=== PATIENT | female | born 1995 | race Caucasian/White ===

== ENCOUNTER 2025-05-26 11:05 | Outpatient (AMB) | payer MEDICAID, SELFPAY ==
[2025-05-26 11:20] VITALS: BP 119/83; PULSE 108; RESP 16; TEMP 36.2; O2SAT 98; BMI 28.0
--- NOTE | 2025-05-26 11:20 | GYNCLNT_ITS ---
Vital Signs 05/26/25 11:20 Height 1.7 m Height Method Stated Weight 81.25 kg Weight Measurement Method Standing Scale BMI 28.0 BP 119/83 Blood Pressure Source Automatic Cuff Blood Pressure Location Left Upper Arm Position Sitting Respiration 16 Pulse 108 H Pulse Source Monitor Temp 97.2 F Temp Source Oral Pulse Oximetry (%) 98 Oxygen Delivery Method Room Air Allergies/Home Meds Allergies & Medications Allergies latex Allergy (Severe, Verified 05/26/25 11:24) Rash doxycycline Allergy (Mild, Verified 05/26/25 11:24) Vomiting Medication Reconciliation acetaminophen 500 mg tablet 500 mg PO Q6H PRN Pain 04/30/23 [History Confirmed 05/26/25] omeprazole 10 mg capsule,delayed release 10 mg PO QDAY 06/03/24 [History Confirmed 05/26/25] vitamin-ferrous sulfate 27 mg iron-folic acid 0.8 mg tablet 1 tab PO QDAY 06/03/24 [History Confirmed 05/26/25] ferrous sulfate 325 mg (65 mg iron) tablet,delayed release 325 mg PO QDAY 90 days #90 tabs 06/05/24 [Rx Confirmed 05/26/25] Intake Visit Data Collection New Patient or Established: Established Patient (seen at [facility] within 3 years) Reason for Visit:: OBC Seen by Clinical Staff ONLY (RN/MA): No Kitchen Assistant Required: No Do You Feel Safe at Home: Yes Authorities Contacted: N/A PCP or OBGYN visit in last 3 months: Yes Date of Last PCP or OBGYN visit: 06/05/25 Hx Now: No Are you currently on any form of Control: No Last menstrual period: 04/30/25 Pain Present Currently: No Pain Scale Used: Arteaga-Sommer/Numerical Pain scale:: 0 Smoking Status Smoking Status: Former smoker 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 Menstrual regularity: regular Flow: normal Monthly: Yes Age at menarche: 7 Menopausal: No 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 1. Little interest or pleasure in doing things: not at all 2. Feeling down, depressed, or hopeless: not at all Total score: 0 PHQ-9 3. Trouble falling or staying asleep, or sleeping too much: Not at all 4. Feeling tired or having little energy: Not at all 5. Poor appetite or overeating: Not at all 6. Feeling bad about yourself - or that you are a failure or have let yourself or your family down: Not at all 7. Trouble concentrating on things, such as reading the newspaper or watching television: Not at all 8. Moving or speaking so slowly that other people could have noticed? - Or the opposite - being so fidgety or restless that you have been moving around a lot more than usual: not at all 9. Thoughts that you would be better off or of hurting yourself in some way: Not at all Total score: 0 If you checked off any problems, how difficult have these problems made it for you to do your work, take care of things at home, or get along with other people?: not difficult at all Source: Developed by Drs. Rahul Colby, Ashwini Stewart, Bharat Maurice and colleagues, with an educational efra from [employer]. Depression screen completed yes Social History Living Situation History Marital Status: Lives With: Family Housing: House Tobacco History Smoking Status: Former smoker Second Hand Smoke Exposure: Yes Alcohol History Alcohol Intake: Never Domestic Abuse History Do You Feel Safe at Home: Yes History of Present Illness HPI Narrative Gisele Ventura, a 29-year-old female, presents for a surgical sterilization consultation. She is approximately one year from her last section, which occurred on June 03, 2024. The patient is interested in pursuing a tubal ligation for permanent contraception. She has no specific complaints or symptoms related to this decision. Gisele is currently taking a vitamin but has been advised to switch to a women's one-a-day multivitamin with higher doses of nutrients. Gisele appears to understand the permanent and irreversible nature of the tubal ligation procedure. She has been informed about the laparoscopic approach, involving three small incisions, and the expected recovery time of 48 to 72 hours. The patient has not expressed any concerns or asked additional questions about the procedure at this time. Surgical History: - section approximately 1 year ago Exam General General Appearance: alert, in no apparent distress and healthy appearing Head Head exam: atraumatic Neck Neck exam: Present normal inspection and trachea midline Chest Chest inspection: Present normal inspection and symmetric chest wall rise External exam: Present normal external exam; Absent tenderness Neuro Neurological exam: Present oriented X3 Psych Psychiatric exam: Present normal affect and normal mood Office Procedures OB Clinic LOC & Office Proc's Nursing/Assessment Patient Status: Established Patient OB Clinic Nursing Assessment: Medication Reconciliation, Update PMH in EMR and Vital Signs OB Clinic Coordination of Care: Education Complex Pt/Fam, Consent,records obtained, informed consent, Lab and Imaging orders, Results/Orders obtained and Staff clarify orders Established Patient Charge Established Patient Point Assignment: 85 Established Patient Point Charge: EP Level 3 (80-115) Assessment & Plan Diagnosis / Problem List (1) Encounter for sterilization: Status: Acute Plan Desire for permanent contraception Assessment: Patient is seeking permanent contraception via tubal ligation. She has completed childbearing with her last delivery via section one year ago. Patient is currently taking vitamins. Plan: - Provide state sterilization consent form for patient to sign - Initiate 30-day mandatory waiting period post-consent - Obtain insurance authorization during waiting period - Schedule laparoscopic bilateral salpingectomy after authorization approval - Recommend switching from vitamin to women's one-a-day multivitamin - Perform pre-operative evaluation and counseling at future appointment - Informed consent discussed: - Procedure involves 3 small laparoscopic incisions - Complete removal of fallopian tubes - Permanent and irreversible - No expected changes to menstrual cycle or hormones - Outpatient procedure under general anesthesia - Estimated 2-hour post-operative stay - 48-72 hour recovery period - Tentative surgery day: - Expected return to work by Saturday or Saturday post-surgery
== END 2025-05-26 11:39 | disposition home or self-care (01) ==
PROVIDERS: Supervising Provider Obstetrics & Gynecology; Visit Provider Obstetrics & Gynecology
DX: Z30.2 Encounter for sterilization (principal); Z87.891 Personal history of nicotine dependence; Z91.040 Latex allergy status; Z88.1 Allergy status to other antibiotic agents
CPT/HCPCS: 99213; G0463

== ENCOUNTER 2025-06-30 08:05 | Outpatient (AMB) | payer MEDICAID, SELFPAY ==
[2025-06-30 08:33] VITALS: BP 122/85; PULSE 85; RESP 16; TEMP 36.2; O2SAT 96; BMI 28.5
--- NOTE | 2025-06-30 08:33 | AMB.GYNCLNOT ---
Vital Signs 06/30/25 08:33 Height 1.7 m Height Method Stated Weight 82.667 kg Weight Measurement Method Standing Scale BMI 28.5 BP 122/85 H Blood Pressure Source Automatic Cuff Blood Pressure Location Left Upper Arm Position Sitting Respiration 16 Pulse 85 Pulse Source Monitor Temp 97.2 F Temp Source Oral Pulse Oximetry (%) 96 Oxygen Delivery Method Room Air Allergies/Home Meds Allergies & Medications Allergies latex Allergy (Severe, Verified 07/22/25 07:05) Rash doxycycline Allergy (Mild, Verified 07/22/25 07:05) Vomiting Medication Reconciliation vitamin-ferrous sulfate 27 mg iron-folic acid 0.8 mg tablet 1 tab PO QDAY 06/03/24 [History Confirmed 07/16/25] Intake Visit Data Collection New Patient or Established: Established Patient (seen at [facility] within 3 years) Reason for Visit:: PRE OP Seen by Clinical Staff ONLY (RN/MA): No 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 Do You Feel Safe at Home: Yes Authorities Contacted: N/A PCP or OBGYN visit in last 3 months: Yes Hx Now: No Are you currently on any form of Control: No Last menstrual period: 06/02/25 Pain Present Currently: No Pain Scale Used: Arteaga-Sommer/Numerical Pain scale:: 0 Smoking Status Smoking Status: Former smoker Immunizations Flu Vaccine in the Last 12 Months: No Flu Vaccine Exclusion Criteria: No 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 Criteria 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 Menstrual regularity: regular Flow: normal Monthly: Yes How many days does period last: 5 Age at menarche: 9 Currently 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 1. Little interest or pleasure in doing things: not at all 2. Feeling down, depressed, or hopeless: not at all Total score: 0 PHQ-9 3. Trouble falling or staying asleep, or sleeping too much: Not at all 4. Feeling tired or having little energy: Not at all 5. Poor appetite or overeating: Not at all 6. Feeling bad about yourself - or that you are a failure or have let yourself or your family down: Not at all 7. Trouble concentrating on things, such as reading the newspaper or watching television: Not at all 8. Moving or speaking so slowly that other people could have noticed? - Or the opposite - being so fidgety or restless that you have been moving around a lot more than usual: not at all 9. Thoughts that you would be better off or of hurting yourself in some way: Not at all Total score: 0 Source: Developed by Drs. Rahul Colby, Ashwini Stewart, Bharat Maurice and colleagues, with an educational efra from [employer]. Depression screen completed yes Social History Living Situation History Lives With: Family Housing: House Tobacco History Smoking Status: Former smoker Second Hand Smoke Exposure: Yes Alcohol History Alcohol Intake: Never Domestic Abuse History Do You Feel Safe at Home: Yes History of Present Illness HPI Narrative Gisele Ventura presents for a pre-operative visit in preparation for a scheduled laparoscopic salpingectomy for sterilization on July 22. The patient did not express any procedural questions during this visit. No specific symptoms, complaints, or changes in health status were discussed during this pre-operative consultation. 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 Exam General General Appearance: alert, in no apparent distress and healthy appearing Head Head exam: atraumatic Neck Neck exam: Present normal inspection and trachea midline Chest Chest inspection: Present normal inspection and symmetric chest wall rise External exam: Present normal external exam; Absent tenderness Neuro Neurological exam: Present oriented X3 Psych Psychiatric exam: Present normal affect and normal mood Office Procedures OBC Clinic LOC & Office Proc's Nursing/Assessment Patient Status: Established Patient OB Clinic Nursing Assessment: Medication Reconciliation, Update PMH in EMR and Vital Signs OB Clinic Coordination of Care: Complex Care and Chronic Disease 1-5, Consent,records obtained, informed consent, Education Simp Pt/Fam, 1 Ins Authorization, Lab and Imaging orders, Results/Orders obtained and Staff clarify orders Special Needs: Heart tones Established Patient Charge Established Patient Point Assignment: 150 Established Patient Point Charge: EP Level 4 (120-155) Assessment & Plan Diagnosis / Problem List (1) Encounter for sterilization: Status: Acute Plan Sterilization Request: - Patient scheduled for laparoscopic bilateral salpingectomy for permanent sterilization. - Procedure will involve complete removal of both fallopian tubes via laparoscopic approach with camera insertion and two lateral incisions above the hip bones. - The uterine ends of the fallopian tubes will be sealed. - Ovaries and uterus will remain intact, preserving hormonal function and menstrual cycles. - Additional benefits include reduced lifetime risk of pelvic infections, pelvic inflammatory disease, endometriosis, and ovarian cancer, as well as elimination of ectopic risk. Plan: - Laparoscopic bilateral salpingectomy scheduled for July 22. - Pre-operative preparation: hospital will call 1-2 days prior to schedule basic blood work, EKG, and anesthesiology consultation with consent signing. - Day of surgery: arrive at 7:30 AM for IV placement and preparation, procedure under general anesthesia, outpatient discharge one hour post-procedure. - Post-operative care: pelvic rest for 7 days recommended, keep three incisions clean and dry, skin glue will fall off naturally. - No follow-up appointment required. - Patient instructed to ask any questions at hospital before procedure.
== END 2025-06-30 08:56 | disposition home or self-care (01) ==
PROVIDERS: Supervising Provider Obstetrics & Gynecology; Visit Provider Obstetrics & Gynecology
DX: Z30.2 Encounter for sterilization (principal); Z87.891 Personal history of nicotine dependence; Z91.040 Latex allergy status; Z88.1 Allergy status to other antibiotic agents
CPT/HCPCS: 99214; G0463

== ENCOUNTER 2025-07-22 06:30 | Day surgery (SDC) | payer MEDICAID, SELFPAY ==
[2025-07-16 07:46] VITALS: BMI 28.9
[2025-07-16 09:01] LABS: Basophils # (Auto) 0.0 Thou/mm3 (0.0-0.2); Basophils % (Auto) 1 % (0-2.5); Eosinophils # (Auto) 0.2 Thou/mm3 (0.0-0.5); Eosinophils % (Auto) 4 % (0-10); Hematocrit 37.9 % (36.0-46.0); Hemoglobin 12.5 g/dL (12.0-16.0); Immature Granulocytes Auto 0.02 Thou/mm3 (0.00-0.00); Lymphocytes # (Auto) 1.5 Thou/mm3 (1.0-4.8); Lymphocytes % (Auto) 30 % (10-50); Mean Corpuscular HGB Conc 33.0 g/dl (31.0-37.0); Mean Corpuscular Hemoglobin 27.7 pg (25.0-35.0); Mean Corpuscular Volume 84 fL (80-100); Monocytes # (Auto) 0.4 Thou/mm3 (0.0-0.8); Monocytes % (Auto) 8 % (0-12); Neutrophils # (Auto) 2.8 Thou/mm3 (1.8-7.7); Neutrophils % (Auto) 57 % (37-80); Nucleated Red Blood Cell # 0.00 Thou/mm3 (0.00-0.00); Nucleated Red Blood Cell % 0 /100 WBC (0); Platelet Count 219 Thou/mm3 (140-440); RDW Standard Deviation 44.9 fL (36.4-46.3); Red Blood Count 4.52 Miln/mm3 (4.00-5.20); White Blood Count 4.9 Thou/mm3 (3.6-11.0)
[2025-07-16 09:10] LABS: Alanine Aminotransferase 13 U/L (10-49); Albumin, Serum 4.7 gm/dL (3.5-5.0); Albumin/Globulin Ratio 2.1 (1.2-2.2); Alkaline Phosphatase 66 U/L (46-116); Anion Gap 8 (7-16); Aspartate Amino Transferase 16 U/L (0-34); BUN/Creatinine Ratio 11 Ratio (12-20); Bilirubin,Total 0.6 mg/dL (0.3-1.2); Blood Urea Nitrogen 9 mg/dL (9-23); Calcium 9.2 mg/dL (8.3-10.6); Calcium (Corrected) 9.2 mg/dL (8.5-10.1); Carbon Dioxide 26.1 mMol/L (20.0-31.0); Chloride 107 mMol/L (98-107); Creatinine (Component) 0.8 mg/dL (0.6-1.3); Estimated Creatinine Clearance 114.3 mL/min (>60); Globulin 2.2 gm/dL (2.3-3.5); Glucose 115 mg/dL (74-106); Osmolality,Calculated 280 (275-295); Potassium 3.9 mMol/L (3.4-5.1); Sodium 141 mMol/L (136-145); Total Protein 6.9 gm/dL (5.7-8.2); eGFR > 60 See Note
[2025-07-16 10:58] LABS: HCG,Qualitative Serum Negative
[2025-07-22] VITALS (8 sets, daily range): BP systolic 123–140; BP diastolic 77–84; PULSE 77–113; RESP 11–16; TEMP 36.2–36.4; O2SAT 95–99; BMI 28.4
--- NOTE | 2025-07-22 09:37 | PD.GYNPROC ---
Operative Note - EDUCATIONAL INTERPRETER Procedure Date of procedure: 07/22/25 Procedure Performed: Laparoscopic salpingectomy for surgical sterilization Lysis of intra-abdominal adhesions Indication: Desired surgical sterilization Anesthesia type: General Procedure description: Informed consent was obtained patient was taken to the operating room.? Identity was confirmed by double identifiers and she was placed on the operating table.? General anesthesia was administered and airway was secured.? Patient was now positioned in the dorsal lithotomy position in Boone stirrups.? The abdomen and perineum were prepped in the usual sterile fashion and sterile drapes were applied.? The bladder was emptied using a straight catheter.? A sponge stick was placed in the vagina for uterine manipulation.? Attention was now turned to the patient's abdomen.? A 5 mm incision was made at the base of the umbilicus using a scalpel.? Laparoscopic entry was accomplished under direct visualization using [employer] laparoscopic trocar.? Once intra-abdominal placement was confirmed pneumoperitoneum was insufflated to 15 cm.? The camera was now introduced into the abdomen and a preliminary survey was performed.? A thick band of omentum was adherent to the anterior abdominal wall at the site of the previous Pfannenstiel scar. The camera was negotiated around this band and the uterus and the adnexa were inspected. The uterus was noted to be significantly retroverted with the following findings. The right fallopian tube was freed and the fimbria could be identified. The left fallopian tube was adhered to the round ligament and the 2 were anatomically indistinguishable. A pair of accessory ports were placed 2 cm superior and medial to the ASIS bilaterally.? The Enseal was used to perform a salpingectomy in the usual fashion. Dissection was started on the right side the right fimbria was grasped using atraumatic grasper and placed under traction. Dissection was carried through the mesosalpinx until the cornual angle was divided. Attention was next turned to the left side. The fimbria were identified out of the at the lesion and dissection was carefully carried in a proximal direction. A small portion of the round ligament was dissected off inadvertently while completing the salpingectomy. The dissection sites were now observed to note satisfactory hemostasis.? All instruments were now withdrawn.? Pneumoperitoneum was desufflated.? The laparoscopic ports were removed.? The skin was now closed using 4-0 Monocryl in a subcuticular fashion.? The patient's skin was now cleaned, sterile dressings were applied.? Patient was undraped, and general anesthesia was reversed and she was transferred to the recovery room in a stable and awake condition. The patient tolerated the entire procedure well.? All instrument, sponge and lap counts are correct x2.? No complications were encountered. Estimated blood loss (ml): 10 Complications: none Surgical staff Operation Date: 07/22/25 08:30 Case Staff Anesthesiologist: Eusebio Singh cattle brander: Leonard Sales Diagnosis Discharge Diagnosis (1) Encounter for sterilization: Status: Acute Problem List Completed Was Problem List Reviewed/Reconciled?: Yes
--- NOTE | 2025-07-22 09:50 | SUR.PHASEI ---
pt received from OR in recovery bay 1. pt asleep but responds to voice, breathing unlabored on room air. v/s stable. pt dressing to abd dermabond x3 cdi. report received from Josselyn CAMPA and Dr. Singh.
[2025-07-22] MEDS: ONDANSETRON INJ 2 MG/ML INJ 2 ML 4 MG IVP (10:02)
[2025-07-22] MEDS: fentaNYL CIT INJ 50 mCg/ML AMP 2ML IVP (10:03)
[2025-07-22] MEDS: KETOROLAC INJ 30 MG/ML VIAL IVP (10:11)
--- NOTE | 2025-07-22 10:13 | SUR.PHASEI ---
pt able to tolerate oral fluids without difficulty swallowing or nausea/vomiting.
[2025-07-22] MEDS: METOCLOPRAMIDE INJ 5 MG/ML VIAL 2 ML 10 MG IVP (10:19)
--- NOTE | 2025-07-22 11:01 | SUR.PHASEII ---
pt awake and alert, breathing unlabored on room air. v/s stable. pt dressing to abd dermabond x3 cdi. pt able to ambulate to wheelchair with steady gait. d/c instructions given with mother Jaja in room, all questions answered. pt d/c via wheelchair with all belongings.
== END 2025-07-22 11:01 | disposition home or self-care (01) ==
PROVIDERS: PCP Family Medicine; Referring Provider Obstetrics & Gynecology; Visit Provider Obstetrics & Gynecology
PROC: (CPT 58720; principal; 2025-07-22 08:30)
DX: Z30.2 Encounter for sterilization (principal)
CPT/HCPCS: 58661; 36415; 80053; 84703; 85025; 86850; 86900; 86901; A4649; J0131; J0330; J1100; J1885; J2371; J2405; J2704; J2765; J3010; J3490; A9270